=== PATIENT | male | born 1960 | race Caucasian/White ===

== ENCOUNTER 2023-03-06 11:53 | Emergency (ER) | payer OTHER ==
[~2023-03-06] VITALS: Ht 160 cm; Wt 72.6 kg
[2023-03-06 12:21] VITALS: BP 142/89; TEMP 98.4; O2SAT 100
[2023-03-06] MEDS ORDERED: KETOROLAC TROMETHAMINE INJ 60 MG/2 ML VIAL IM ONE (12:30)
[2023-03-06] MEDS ORDERED: CYCLOBENZAPRINE 10 MG TABLET PO ONE (12:30)
[2023-03-06] MEDS ORDERED: KETOROLAC TROMETHAMINE INJ 30 MG/ML VIAL ONE (13:22)
[2023-03-06] MEDS ORDERED: CYCLOBENZAPRINE 10 MG TABLET ONE (13:23)
[2023-03-06] MEDS ORDERED: KETO10TA2 PO (13:24)
[2023-03-06] MEDS ORDERED: CYCL5TAB PO (13:24)
== END 2023-03-06 13:41 | disposition home or self-care (01) ==
LOC: ER 12:05
DX: S16.1XXA Strain of muscle, fascia and tendon at neck level, initial encounter (principal); Z79.899 Other long term (current) drug therapy; V79.88XA Bus occupant (driver) (passenger) injured in other specified transport accidents, initial encounter; Y93.89 Activity, other specified; Y92.89 Other specified places as the place of occurrence of the external cause; Y99.8 Other external cause status
CPT/HCPCS: 72125-TC; J1885